=== PATIENT | male | born 1980 | race Caucasian/White ===

== ENCOUNTER 2017-08-27 21:41 | Emergency (ER) | payer BC ==
[2017-08-27] MEDS ORDERED: Sodium Chloride 0.9% 1,000 ML IV ONE ×2 (22:19→22:26)
[2017-08-27] MEDS ORDERED: Aspirin 81 MG Tab.Chew PO ONE (22:19)
[2017-08-27] MEDS ORDERED: Pantoprazole 40 MG Vial IVPUSH ONE (22:19)
[2017-08-27 22:22] LABS: CHLORIDE,CL 108 mmol/L (98-110); SODIUM,NA 141 mmol/L (136-146)
[2017-08-27] MEDS ORDERED: Ondansetron 4 MG/2 ML SDV IVPUSH ONE (22:26)
--- NOTE | 2017-08-28 00:02 | EDM.PDOC ---
ED HPI GENERAL MEDICAL PROBLEM - General Chief Complaint: Chest Pain Stated Complaint: NAUSEA,CHEST PAIN Time Seen by Provider: 08/28/17 00:01 Source of Information: Reports: Patient - History of Present Illness INITIAL COMMENTS - FREE TEXT/NARRATIVE: HISTORY AND PHYSICAL: History of present illness: []Patient presents with abdominal pain 3 out of 10 left lower quadrant which is been present for one week some intermittent nausea no fever chills or sweats at current no chest pain shortness breath headache dizziness palpitation no bowel or urine symptoms Patient had a complaint of chest pain secondary complaint he has had for years and intermittent chest pain that is 0 out of 10 at this time, cardiac enzymes remain negative pain is not present at this time Review of systems: As per history of present illness and below otherwise all systems reviewed and negative. Past medical history: As per history of present illness and as reviewed below otherwise noncontributory. Surgical history: As per history of present illness and as reviewed below otherwise noncontributory. Social history: No reported history of drug or alcohol abuse. Family history: As per history of present illness and as reviewed below otherwise noncontributory. Physical exam: HEENT: Atraumatic, normocephalic, pupils reactive, negative for conjunctival pallor or scleral icterus, mucous membranes moist, throat clear, neck supple, nontender, trachea midline. Lungs: Clear to auscultation, breath sounds equal bilaterally, chest nontender. Heart: S1S2, regular, negative for clicks, rubs, or JVD. Abdomen: Soft, nondistended, tender in the left lower quadrant with deep palpation right lower quadrant nontender no guarding or rebound. Negative for masses or hepatosplenomegaly. Negative for costovertebral tenderness. Pelvis: Stable nontender. Genitourinary: Deferred. Rectal: Deferred. Extremities: Atraumatic, negative for cords or calf pain. Neurovascular unremarkable. Neuro: Awake, alert, oriented. Cranial nerves II through XII unremarkable. Cerebellum unremarkable. Motor and sensory unremarkable throughout. Exam nonfocal. Diagnostics: [Lab as below CT abdomen pelvis with contrast EKG Chest 1 view ] Therapeutics: []1 L normal saline bolus Zofran 8 mg IV Protonix 80 mg IV Cipro 500 mg by mouth bid Impression: [Left lower quadrant tenderness Clinical appearance is more of a diverticulitis CT head no acute abdominal process] Definitive disposition and diagnosis as appropriate pending reevaluation and review of above. Treatments STUDENT SUCCESS COACH: Reports: EKG Left Chest Pain Score (Numeric/FACES): 9 Abdomen Pain Score (Numeric/FACES): 7 - Related Data Allergies Allergy/AdvReac Type Severity Reaction Status Date / Time No Known Allergies Allergy Verified 08/27/17 21:53 Home Meds: Home Meds Albuterol [Proventil HFA] 1 puff INH ASDIRECTED PRN 08/27/17 [History] Past Medical History HEENT History: Reports: Impaired Vision Cardiovascular History: Reports: Angina Respiratory History: Reports: Sleep Apnea Other Respiratory History: on bipap at home - Infectious Disease History Infectious Disease History: Reports: Chicken Pox - Past Surgical History HEENT Surgical History: Reports: None Cardiovascular Surgical History: Reports: None Respiratory Surgical History: Reports: None Social & Family History - Family History Family Medical History: Noncontributory - Tobacco Use Smoking Status *Q: Current Every Day Smoker Years of Tobacco use: 20 Packs/Tins Daily: 0.5 - Caffeine Use Caffeine Use: Reports: Coffee, Energy Drinks, Soda - Recreational Drug Use Recreational Drug Use: No ED ROS GENERAL - Review of Systems Review Of Systems: ROS reveals no pertinent complaints other than HPI. ED EXAM, GENERAL - Physical Exam Exam: See Below Course - Vital Signs Last Recorded V/S: Last Vital Signs Temp 36.5 C 08/27/17 21:48 Pulse 81 08/27/17 21:48 Resp 20 08/27/17 21:48 BP 136/76 08/27/17 21:48 Pulse Ox 96 08/27/17 21:48 - Orders/Labs/Meds Orders: Active Orders 24 hr Category Date Time Status EKG Documentation Completion [RC] STAT Care 08/27/17 21:43 Inactive EKG Documentation Completion [RC] STAT Care 08/27/17 22:19 Active Abdomen Pelvis w Cont [CT] Stat Exams 08/27/17 22:26 Taken Chest 1V Frontal [CR] Stat Exams 08/27/17 22:19 Taken Ciprofloxacin [Ciprofloxacin HCl] Med 08/28/17 00:12 Once 500 mg PO ONETIME ONE Labs: Laboratory Tests 08/27/17 08/27/17 08/27/17 Range/Units 21:50 21:50 23:00 WBC 14.08 H (4.0-11.0) K/uL RBC 5.14 (4.50-5.90) M/uL Hgb 16.2 (13.0-17.0) g/dL Hct 47.2 (38.0-50.0) % MCV 91.8 (80.0-98.0) fL MCH 31.5 (27.0-32.0) pg MCHC 34.3 (31.0-37.0) g/dL RDW Std Deviation 45.9 (28.0-62.0) fl RDW Coeff of Eli 14 (11.0-15.0) % Plt Count 256 (150-400) K/uL MPV 11.20 (7.40-12.00) fL Neut % (Auto) 64.6 (48.0-80.0) % Lymph % (Auto) 23.0 (16.0-40.0) % [place] % (Auto) 8.3 (0.0-15.0) % Eos % (Auto) 3.6 (0.0-7.0) % Baso % (Auto) 0.5 (0.0-1.5) % Neut # (Auto) 9.1 H (1.4-5.7) K/uL Lymph # (Auto) 3.2 H (0.6-2.4) K/uL [place] # (Auto) 1.2 H (0.0-0.8) K/uL Eos # (Auto) 0.5 (0.0-0.7) K/uL Baso # (Auto) 0.1 (0.0-0.1) K/uL Nucleated RBC % 0.0 /100WBC Nucleated RBCs # 0 K/uL Sodium 141 (136-146) mmol/L Potassium 4.1 (3.5-5.1) mmol/L Chloride 108 (98-110) mmol/L Carbon Dioxide 22 (21-31) mmol/L BUN 15 (6.0-23.0) mg/dL Creatinine 1.2 (0.6-1.5) mg/dL Est Cr Clr Drug Dosing 94.31 mL/min Estimated GFR (MDRD) > 60.0 ml/min Glucose 129 H (60-110) mg/dL Calcium 9.7 (8.8-10.8) mg/dL Total Bilirubin 0.3 (0.1-1.5) mg/dL AST 16 (5-40) IU/L ALT 21 (8-54) IU/L Alkaline Phosphatase 86 (40-150) Troponin I < 0.10 (0.0-0.29) NG/ML Total Protein 7.5 (6.0-8.0) g/dL Albumin 4.2 (3.5-5.0) g/dL Globulin 3.3 (2.0-3.5) g/dL Albumin/Globulin Ratio 1.3 (1.3-2.8) Amylase 31 (10-90) U/L Lipase 44 (7-80) U/L Urine Color YELLOW Urine Appearance CLEAR Urine pH 6.0 (5.0-8.0) Ur Specific [place] 1.025 (1.001-1.035) Urine Protein NEGATIVE (NEGATIVE) mg/dL Urine Glucose (UA) NEGATIVE (NEGATIVE) mg/dL Urine Ketones NEGATIVE (NEGATIVE) mg/dL Urine Occult Blood NEGATIVE (NEGATIVE) Urine Nitrite NEGATIVE (NEGATIVE) Urine Bilirubin NEGATIVE (NEGATIVE) Urine Urobilinogen 0.2 (<2.0) EU/dL Ur Leukocyte Esterase NEGATIVE (NEGATIVE) Urine RBC 0-1 (0-2/HPF) Urine WBC 0-1 (0-5/HPF) Ur Epithelial Cells RARE (NONE-FEW) Urine Bacteria RARE (NEGATIVE) Meds: Medications Discontinued Medications Generic Name Dose Route Start Last Admin Trade Name Freq PRN Reason Stop Dose Admin Aspirin 324 mg 08/27/17 22:19 08/27/17 22:29 Aspirin PO 08/27/17 22:20 324 mg ONETIME ONE Administration Sodium Chloride 1,000 mls @ 999 mls/hr 08/27/17 22:19 08/27/17 22:27 Normal Saline IV 08/27/17 23:19 999 mls/hr STAT ONE Administration Sodium Chloride 1,000 mls @ 999 mls/hr 08/27/17 22:26 Normal Saline IV 08/27/17 23:26 STAT ONE Ondansetron HCl 8 mg 08/27/17 22:26 08/27/17 22:39 Zofran IVPUSH 08/27/17 22:27 8 mg ONETIME ONE Administration Pantoprazole Sodium 80 mg 08/27/17 22:19 08/27/17 22:28 Protonix Iv IVPUSH 08/27/17 22:20 80 mg .BOLUS ONE Administration Departure - Departure Time of Disposition: 00:16 Disposition: Home, Self-Care 01 Condition: Good Clinical Impression: Abdominal pain - Discharge Information Referrals: PCP,None [Primary Care Provider] - Forms: ED Department Discharge Additional Instructions: Cipro 500 mg by mouth twice a day #20 no refill Return if symptoms persist or worsen or new concerning symptoms develop Follow-up with primary care in one week [facility] [address] [place] [id number] The following information is given to patients seen in the emergency department who are being discharged to home. This information is to outline your options for follow-up care. We provide all patients seen in our emergency department with a follow-up referral. The need for follow-up, as well as the timing and circumstances, are variable depending upon the specifics of your emergency department visit. If you don't have a primary care physician on staff, we will provide you with a referral. We always advise you to contact your personal physician following an emergency department visit to inform them of the circumstance of the visit and for follow-up with them and/or the need for any referrals to a consulting specialist. The emergency department will also refer you to a specialist when appropriate. This referral assures that you have the opportunity for follow-up care with a specialist. All of these measure are taken in an effort to provide you with optimal care, which includes your follow-up. Under all circumstances we always encourage you to contact your private physician who remains a resource for coordinating your care. When calling for follow-up care, please make the office aware that this follow-up is from your recent emergency room visit. If for any reason you are refused follow-up, please contact the [facility] emergency department at and asked to speak to the emergency department charge nurse. - My Orders Last 24 Hours: My Active Orders 08/27/17 21:43 EKG Documentation Completion [RC] STAT 08/27/17 22:19 EKG Documentation Completion [RC] STAT Chest 1V Frontal [CR] Stat 08/27/17 22:26 Abdomen Pelvis w Cont [CT] Stat 08/28/17 00:12 Ciprofloxacin [Ciprofloxacin HCl] 500 mg PO ONETIME ONE - Assessment/Plan Last 24 Hours: My Active Orders 08/27/17 21:43 EKG Documentation Completion [RC] STAT 08/27/17 22:19 EKG Documentation Completion [RC] STAT Chest 1V Frontal [CR] Stat 08/27/17 22:26 Abdomen Pelvis w Cont [CT] Stat 08/28/17 00:12 Ciprofloxacin [Ciprofloxacin HCl] 500 mg PO ONETIME ONE
[2017-08-28] MEDS ORDERED: Ciprofloxacin 500 MG Tab PO ONE (00:12)
[2017-08-28 00:39] VITALS: BP 123/75
--- NOTE | 2017-08-29 18:59 | CR ---
EXAM DATE: 08/27/17 PATIENT'S AGE: 37 Patient: ARNEL HAIDER Facility: [place], [place] Site . Site : 1980 Study: XRay Chest [id number] 11:45:00 PM Ordering Physician: Raymond Godoy Final Report: INDICATION: Chest pain, shortness of breath TECHNIQUE: Chest 1 view. COMPARISON: 11/30/11 FINDINGS: Cardiovascular and mediastinum: Heart size and vasculature are normal in caliber and appearance. Mediastinum is within normal limits. Lungs and pleural space: Lungs are clear. No sign of infiltrate or mass. No sign of pleural effusion. No pneumothorax. Bones and soft tissues: No significant findings. IMPRESSION: Unremarkable chest. Dictated by: Jose Perez MD @ 08/27/2017 23:54:29 (Electronic Signature) Report Signed by Proxy. [facility]Bon
--- NOTE | 2017-08-29 19:00 | CT ---
EXAM DATE: 08/27/17 PATIENT'S AGE: 37 Patient: ARNEL HAIDER Facility: [place], [place] Site . Site : 1980 Study: CT Abdomen/Pelvis [id number] 11:47:14 PM Ordering Physician: Raymond Godoy Final Report: INDICATION: Midabdominal pain and nausea for 1 week TECHNIQUE: CT abdomen and pelvis acquired with 100 cc Isovue 370 IV contrast. COMPARISON: June 04, 2016 FINDINGS: Lower chest: There is a 1.0 cm pulmonary nodule in the right lower lobe, unchanged. Liver: Unremarkable. Spleen: Unremarkable. Pancreas: Unremarkable. Gallbladder and bile ducts: Unremarkable. Adrenal glands: Unremarkable. Kidneys: There is a horseshoe kidney. GI tract: Unremarkable. Appendix is normal. Vascular structures: Unremarkable. Lymph nodes: Unremarkable. Miscellaneous: Small fat containing left inguinal hernia. No free air or significant free fluid. Pelvic Organs: Unremarkable. Bones: Unremarkable for age. IMPRESSION: 1. No acute intra-abdominal process identified. 2. Stable 1.0 cm pulmonary nodule in the right lower lobe. Consider PET-CT to evaluate for metabolic activity. 3. Horseshoe kidney. 4. Small fat containing left inguinal hernia. Please note that all CT scans at this facility use dose modulation, iterative reconstruction, and/or weight-based dosing when appropriate to reduce radiation dose to as low as reasonably achievable. Dictated by Beverley Crespo MD @ Aug 27 2017 11:58PM (Electronic Signature) Report Signed by Proxy. CHANDAN
== END 2017-08-28 00:30 | disposition home or self-care (01) ==
LOC: MW.ED 21:41
DX: R10.32 Left lower quadrant pain (principal); F17.210 Nicotine dependence, cigarettes, uncomplicated
CPT/HCPCS: 36415; 71010; 74177; 80053; 81001; 82150; 83690; 84484; 85025; 93005; 96361; 96374; 96375; 99285; A9270; C9113; J2405; J7040; 99283

== ENCOUNTER 2018-11-23 13:17 | Emergency (ER) | payer BC ==
--- NOTE | 2018-11-23 13:57 | EDM.PDOC ---
ED HPI GENERAL MEDICAL PROBLEM - General Chief Complaint: Respiratory Problem Stated Complaint: COUGH CHEST PAIN Time Seen by Provider: 11/23/18 13:19 Source of Information: Reports: Patient History Limitations: Reports: No Limitations - History of Present Illness INITIAL COMMENTS - FREE TEXT/NARRATIVE: History of present illness: []Patient has had raspy breathing since October 12 when he was seen here in the ER. He states he uses albuterol nebulizer and inhaler and noted this morning that he woke up burning up sweating. He complains of a sore throat, body aches and sinus congestion. He has not measured a fever at home. Patient denies any vomiting or diarrhea. Patient sleeps with a BiPAP and wakes up short of breath every morning. Not been able to follow up with primary care or vice president lending. Of note, patient continues to smoke. Review of systems: As per history of present illness and below otherwise all systems reviewed and negative. Past medical history: As per history of present illness and as reviewed below otherwise noncontributory. Surgical history: As per history of present illness and as reviewed below otherwise noncontributory. Social history: No reported history of drug or alcohol abuse. Family history: As per history of present illness and as reviewed below otherwise noncontributory. Physical exam: General: Well developed, well nourished in NAD HEENT: Atraumatic, normocephalic, pupils reactive, negative for conjunctival pallor or scleral icterus, mucous membranes moist, throat clear, neck supple, nontender, trachea midline. Lungs: Diffuse rhonchi no respiratory distress or pessary muscle use, breath sounds equal bilaterally, chest nontender. Heart: S1S2, regular, negative for clicks, rubs, or JVD. Abdomen: NABS, Soft, nondistended, nontender. Negative for masses or hepatosplenomegaly. Negative for costovertebral tenderness. Pelvis: Stable nontender. Genitourinary: Deferred. Rectal: Deferred. Extremities: Atraumatic, negative for cords or calf pain. Neurovascular unremarkable. Neuro: Awake, alert, oriented. Cranial nerves II through XII unremarkable. Cerebellum unremarkable. Motor and sensory unremarkable throughout. Exam nonfocal. Skin:warm and dry Diagnostics: Influenza A +, strep vital signs stable no hypoxia Therapeutics: DuoNeb ED Course: Unremarkable Impression: Influenza A Prescriptions: Prednisone albuterol Plan: Follow-up with primary care Definitive disposition and diagnosis as appropriate pending reevaluation and review of above. Throat Pain Score (Numeric/FACES): 5 - Related Data Allergies Allergy/AdvReac Type Severity Reaction Status Date / Time No Known Allergies Allergy Verified 11/23/18 13:49 Home Meds: Home Meds Albuterol [Proventil HFA] 1 puff INH ASDIRECTED PRN 08/27/17 [History] Albuterol [Ventolin HFA] 2 puff INH Q4HR PRN #1 inhaler 11/23/18 [Rx] predniSONE [Prednisone] 20 mg PO DAILY #5 tablet 11/23/18 [Rx] Past Medical History HEENT History: Reports: Impaired Vision Cardiovascular History: Reports: Angina Respiratory History: Reports: Asthma, Sleep Apnea Other Respiratory History: on bipap at home Gastrointestinal History: Reports: GERD - Infectious Disease History Infectious Disease History: Reports: Chicken Pox - Past Surgical History HEENT Surgical History: Reports: None Cardiovascular Surgical History: Reports: None Respiratory Surgical History: Reports: None Social & Family History - Family History Family Medical History: Noncontributory - Tobacco Use Smoking Status *Q: Current Every Day Smoker Years of Tobacco use: 20 Packs/Tins Daily: 2 - Caffeine Use Caffeine Use: Reports: Soda - Recreational Drug Use Recreational Drug Use: No ED ROS GENERAL - Review of Systems Review Of Systems: ROS reveals no pertinent complaints other than HPI. ED EXAM, GENERAL - Physical Exam Exam: See Below (See history of present illness) Course - Vital Signs Last Recorded V/S: Last Vital Signs Temp 98.4 F 11/23/18 13:47 Pulse 90 11/23/18 13:47 Resp 18 11/23/18 13:47 BP 107/72 11/23/18 13:47 Pulse Ox 95 11/23/18 14:06 - Orders/Labs/Meds Orders: Active Orders 24 hr Category Date Time Status RT Aerosol Therapy [RC] ASDIRECTED Care 11/23/18 13:58 Active CULTURE STREP A CONFIRMATION [] Stat Lab 11/23/18 14:10 Results STREP SCRN A RAPID W CULT CONF [] Stat Lab 11/23/18 14:10 Results Meds: Medications Discontinued Medications Generic Name Dose Route Start Last Admin Trade Name Freq PRN Reason Stop Dose Admin Albuterol/Ipratropium 3 ml 11/23/18 13:58 11/23/18 14:06 Duoneb 3.0-0.5 Mg/3 Ml NEB 11/23/18 13:59 3 ml ONETIME ONE Administration Departure - Departure Time of Disposition: 14:56 Disposition: Home, Self-Care 01 Condition: Good Clinical Impression: Influenza A Clinical Impression: (Ruled Out): Chronic bronchitis, Viral URI - Discharge Information *PRESCRIPTION DRUG MONITORING PROGRAM REVIEWED*: No *COPY OF PRESCRIPTION DRUG MONITORING REPORT IN PATIENT ROBERT: No Prescriptions: Albuterol [Ventolin HFA] 2 puff INH Q4HR PRN #1 inhaler PRN Reason: Shortness Of Breath predniSONE [Prednisone] 20 mg PO DAILY #5 tablet Referrals: PCP,Unknown [Primary Care Provider] - Forms: ED Department Discharge Additional Instructions: The following information is given to patients seen in the emergency department who are being discharged to home. This information is to outline your options for follow-up care. We provide all patients seen in our emergency department with a follow-up referral. The need for follow-up, as well as the timing and circumstances, are variable depending upon the specifics of your emergency department visit. If you don't have a primary care physician on staff, we will provide you with a referral. We always advise you to contact your personal physician following an emergency department visit to inform them of the circumstance of the visit and for follow-up with them and/or the need for any referrals to a consulting specialist. The emergency department will also refer you to a specialist when appropriate. This referral assures that you have the opportunity for follow-up care with a specialist. All of these measure are taken in an effort to provide you with optimal care, which includes your follow-up. Under all circumstances we always encourage you to contact your private physician who remains a resource for coordinating your care. When calling for follow-up care, please make the office aware that this follow-up is from your recent emergency room visit. If for any reason you are refused follow-up, please contact the [facility] Emergency Department at and asked to speak to the emergency department charge nurse. Take meds as directed follow-up with primary care return if symptoms worsen or change. [facility] [address] [place] [id number] - My Orders Last 24 Hours: My Active Orders 11/23/18 13:58 RT Aerosol Therapy [RC] ASDIRECTED 11/23/18 14:10 CULTURE STREP A CONFIRMATION [RM] Stat STREP SCRN A RAPID W CULT CONF [RM] Stat - Assessment/Plan Last 24 Hours: My Active Orders 11/23/18 13:58 RT Aerosol Therapy [RC] ASDIRECTED 11/23/18 14:10 CULTURE STREP A CONFIRMATION [RM] Stat STREP SCRN A RAPID W CULT CONF [RM] Stat
[2018-11-23] MEDS ORDERED: Albuterol/Ipratropium 3.0-0.5 MG/3 ML Neb Soln NEB ONE (13:58)
[2018-11-23] MEDS ORDERED: Albuterol/Ipratropium 3.0-0.5 MG/3 ML Neb Soln ONE (14:03)
[2018-11-23 15:08] VITALS: BP 136/60
== END 2018-11-23 15:04 | disposition home or self-care (01) ==
LOC: MW.ED 13:17
DX: J10.1 Influenza due to other identified influenza virus with other respiratory manifestations (principal); F17.219 Nicotine dependence, cigarettes, with unspecified nicotine-induced disorders; Z79.899 Other long term (current) drug therapy
CPT/HCPCS: 87081; 87804; 87880-QW; 94640; 99285-25; J7620-GY

== ENCOUNTER 2019-02-08 13:40 | Emergency (ER) | payer SELFPAY ==
[2019-02-08] MEDS ORDERED: Benzocaine 20% Topical Spray UD MUCMEM ONE (13:47)
[2019-02-08] MEDS ORDERED: Lidocaine 2% Viscous Solution 15 ML Cup PO ONE (13:47)
--- NOTE | 2019-02-08 13:48 | EDM.PDOC ---
ED HPI GENERAL MEDICAL PROBLEM - General Chief Complaint: General Stated Complaint: TOOTH PAIN Time Seen by Provider: 02/08/19 13:44 Source of Information: Reports: Patient History Limitations: Reports: No Limitations - History of Present Illness INITIAL COMMENTS - FREE TEXT/NARRATIVE: History of present illness: []Patient started having pain in his upper and lower right molars last night. Facial swelling, fevers, drainage from his gums or difficulty swallowing. Review of systems: As per history of present illness and below otherwise all systems reviewed and negative. Past medical history: As per history of present illness and as reviewed below otherwise noncontributory. Surgical history: As per history of present illness and as reviewed below otherwise noncontributory. Social history: No reported history of drug or alcohol abuse. Family history: As per history of present illness and as reviewed below otherwise noncontributory. Physical exam: General: Well developed, well nourished in NAD HEENT: Atraumatic, normocephalic, pupils reactive, negative for conjunctival pallor or scleral icterus, mucous membranes moist, throat clear, neck supple, nontender, trachea midline. Lungs: Clear to auscultation, breath sounds equal bilaterally, chest nontender. Heart: S1S2, regular, negative for clicks, rubs, or JVD. Abdomen: NABS, Soft, nondistended, nontender. Negative for masses or hepatosplenomegaly. Negative for costovertebral tenderness. Pelvis: Stable nontender. Genitourinary: Deferred. Rectal: Deferred. Extremities: Atraumatic, negative for cords or calf pain. Neurovascular unremarkable. Neuro: Awake, alert, oriented. Cranial nerves II through XII unremarkable. Cerebellum unremarkable. Motor and sensory unremarkable throughout. Exam nonfocal. Skin:warm and dry Diagnostics: None Therapeutics: None ED Course: Stable Impression: Dental pain Prescriptions: Clindamycin and dental balls given while in the ED Plan: Take meds as directed, follow up with your primary care physician, return to ER if symptoms worsen or change. Definitive disposition and diagnosis as appropriate pending reevaluation and review of above. Right Tooth/Teeth Pain Score (Numeric/FACES): 10 - Related Data Allergies Allergy/AdvReac Type Severity Reaction Status Date / Time No Known Allergies Allergy Verified 02/08/19 13:53 Home Meds: Home Meds Albuterol [Ventolin HFA] 2 puff INH Q4HR PRN #1 inhaler 11/23/18 [Rx] Clindamycin HCl 300 mg PO TID #30 capsule 02/08/19 [Rx] Ranitidine HCl [Heartburn Relief 150] 150 mg PO DAILY 02/08/19 [History] Past Medical History HEENT History: Reports: Impaired Vision Cardiovascular History: Reports: Angina Respiratory History: Reports: Asthma, Sleep Apnea Other Respiratory History: on bipap at home Gastrointestinal History: Reports: GERD - Infectious Disease History Infectious Disease History: Reports: Chicken Pox - Past Surgical History HEENT Surgical History: Reports: None Cardiovascular Surgical History: Reports: None Respiratory Surgical History: Reports: None Social & Family History - Family History Family Medical History: Noncontributory - Caffeine Use Caffeine Use: Reports: Soda ED ROS GENERAL - Review of Systems Review Of Systems: ROS reveals no pertinent complaints other than HPI. ED EXAM, GENERAL - Physical Exam Exam: See Below (See history of present illness) Course - Vital Signs Last Recorded V/S: Last Vital Signs Temp 97.3 F 02/08/19 13:51 Pulse 86 02/08/19 13:51 Resp 18 02/08/19 13:51 BP 170/95 H 02/08/19 13:51 Pulse Ox 95 02/08/19 13:51 - Orders/Labs/Meds Meds: Medications Discontinued Medications Generic Name Dose Route Start Last Admin Trade Name Freq PRN Reason Stop Dose Admin Benzocaine 2 each 02/08/19 13:47 Hurricaine One 20% MUCMEM 02/08/19 13:48 ONETIME ONE Lidocaine HCl 15 ml 02/08/19 13:47 Xylocaine 2% Viscous PO 02/08/19 13:48 ONETIME ONE Departure - Departure Time of Disposition: 13:59 Disposition: Home, Self-Care 01 Condition: Good Clinical Impression: Pain, dental - Discharge Information *PRESCRIPTION DRUG MONITORING PROGRAM REVIEWED*: No *COPY OF PRESCRIPTION DRUG MONITORING REPORT IN PATIENT ROBERT: No Prescriptions: Clindamycin HCl 300 mg PO TID #30 capsule Referrals: PCP,Unknown [Primary Care Provider] - Forms: ED Department Discharge Additional Instructions: The following information is given to patients seen in the emergency department who are being discharged to home. This information is to outline your options for follow-up care. We provide all patients seen in our emergency department with a follow-up referral. The need for follow-up, as well as the timing and circumstances, are variable depending upon the specifics of your emergency department visit. If you don't have a primary care physician on staff, we will provide you with a referral. We always advise you to contact your personal physician following an emergency department visit to inform them of the circumstance of the visit and for follow-up with them and/or the need for any referrals to a consulting specialist. The emergency department will also refer you to a specialist when appropriate. This referral assures that you have the opportunity for follow-up care with a specialist. All of these measure are taken in an effort to provide you with optimal care, which includes your follow-up. Under all circumstances we always encourage you to contact your private physician who remains a resource for coordinating your care. When calling for follow-up care, please make the office aware that this follow-up is from your recent emergency room visit. If for any reason you are refused follow-up, please contact the [facility] Emergency Department at and asked to speak to the emergency department charge nurse. Take meds as directed, follow up with your primary care physician, return to ER if symptoms worsen or change. [facility] [address] [place] [id number]
[2019-02-08 14:19] VITALS: BP 149/92
== END 2019-02-08 14:19 | disposition home or self-care (01) ==
LOC: MW.ED 13:40
DX: K08.89 Other specified disorders of teeth and supporting structures (principal)
CPT/HCPCS: 99282; A9270

== ENCOUNTER 2020-09-15 12:25 | Emergency (ER) | payer BC ==
[2020-09-15] MEDS ORDERED: Ondansetron 4 MG/2 ML SDV IVPUSH ONE (13:26)
[2020-09-15] MEDS ORDERED: Ketorolac 30 MG/ML SDV IVPUSH ONE (13:26)
[2020-09-15] MEDS ORDERED: Sodium Chloride 0.9% 1,000 ML IV ONE (13:26)
[2020-09-15] MEDS ORDERED: Morphine 4 MG/ML Syringe IVPUSH ONE (13:27)
[2020-09-15 13:44] LABS: BLOOD UREA NITROGEN,BUN 15 mg/dL (7.0-18.0); CARBON DIOXIDE,CO2 23.6 mmol/L (21.0-32.0); CHLORIDE,CL 105 mmol/L (98-107); GLUCOSE RANDOM 123 mg/dL (74-106); LIPASE 103 U/L (73-393); POTASSIUM,K 3.7 mmol/L (3.5-5.1); SODIUM,NA 141 mmol/L (136-148)
[2020-09-15] MEDS ORDERED: Iopamidol 755 MG/ML 500 ML Multipack Bottle IVPUSH ONE (14:41)
--- NOTE | 2020-09-15 14:43 | EDM.PDOC ---
ED HPI GENERAL MEDICAL PROBLEM - General Chief Complaint: Abdominal Pain Stated Complaint: ABDOMINAL PAIN Time Seen by Provider: 09/15/20 12:27 Source of Information: Reports: Patient History Limitations: Reports: No Limitations - History of Present Illness INITIAL COMMENTS - FREE TEXT/NARRATIVE: HISTORY AND PHYSICAL: History of present illness: Patient is a 40-year-old male who presents to the ED today with concern of sudden onset lower abdominal pain that began when he was sitting at home. Patient states prior to the onset of his symptoms, he was going about his day without any concerns. Patient states he was sitting and watching TV when he began to have sudden lower abdominal pain from his umbilicus down both his right and lower abdomen. Patient states this began 45 minutes prior to arrival to the ED and he feels nauseous but has not vomited. Patient states he is also been sweating since the onset of his symptoms due to the pain. Patient states he has a history of prior hernia repair using mesh but states he is not sure where this is located. Patient denies any other abdominal surgeries. Patient denies any other health history. Patient denies fever, chills, chest pain, shortness of breath, or cough. Denies headache, neck stiff ness, change in vision, syncope, or near syncope. Denies nausea, diarrhea, constipation, or dysuria. Has not noted any blood in urine or stool. Patient has been eating and drinking appropriately prior to onset of symptoms. Review of systems: As per history of present illness and below otherwise all systems reviewed and negative. Past medical history: As per history of present illness and as reviewed below otherwise noncontributory. Surgical history: As per history of present illness and as reviewed below otherwise noncontributory. Social history: See social history for further information Family history: As per history of present illness and as reviewed below otherwise noncontributory. Physical exam: General: Patient is alert, oriented. Patient laying on exam table, moderately uncomfortable from pain, holding lower abdomen and diaphoretic. HEENT: Atraumatic, normocephalic, pupils equal and reactive bilaterally, negative for conjunctival pallor or scleral icterus, mucous membranes moist, TMs normal bilaterally, throat clear, neck supple, nontender, trachea midline. No drooling or trismus noted. No meningeal signs. No hot potato voice noted. Lungs: Clear to auscultation, breath sounds equal bilaterally, chest nontender. Heart: S1S2, regular rate and rhythm without overt murmur Abdomen: Obese, Soft, nondistended, generalized moderate tenderness of the lower abdomen without guarding. Negative for masses or hepatosplenomegaly. Negative for costovertebral tenderness. Pelvis: Stable nontender. Genitourinary: Deferred. Rectal: Deferred. Skin: Intact, warm, dry. No lesions or rashes noted. Extremities: Atraumatic, negative for cords or calf pain. Neurovascular unremarkable. Neuro: Awake, alert, oriented. Cranial nerves II through XII unremarkable. Cerebellum unremarkable. Motor and sensory unremarkable throughout. Exam nonfocal. Notes: Dr. Viveros verbally involved in patient care, including antibiotic recommendations decision making. Patients symptoms have much improved with therapeutics today and is comfortable on exam and in no acute distress, and able to tolerate PO intake. Patient does have an elevated WBC count, however, his urine does not appear to be infected, and lactate is within normal limits. Will give antibiotics empirically and close follow up with urology. Discussed importance for follow-up with the urologist, Dr. Quiros and his PCP. Signs and symptoms that would prompt return to the ED thoroughly discussed with patient. Voices understanding and is agreeable to plan of care. Denies any further questions or concerns at this time. Diagnostics: EKG, CBC, CMP, UA, urine culture, Trop, CXR, Abd/pelvic w/w/o cont, lipase, lactate, blood cultures x 2 Therapeutics: NS, Zofran, Toradol, Morphine, Rocephin Prescription: Bactrim DS, Zofran, Mathews 5/325 (#12), Flomax Impression: Ureterolithiasis, left Plan: 1. Take medication as prescribed. You can also use ibuprofen and Tylenol as directed for pain and discomfort. 2. Follow-up with the urologist, Dr. Stringer, as discussed. Also follow-up with your primary care provider as discussed. 3. Return to the ED as needed and as discussed. Definitive disposition and diagnosis as appropriate pending reevaluation and review of above. Abdomen Pain Score (Numeric/FACES): 10 - Related Data Allergies Allergy/AdvReac Type Severity Reaction Status Date / Time No Known Allergies Allergy Verified 09/15/20 13:13 Home Meds: Home Meds Albuterol [Ventolin HFA] 2 puff INH Q4HR PRN #1 inhaler 11/23/18 [Rx] Ranitidine HCl [Heartburn Relief 150] 150 mg PO DAILY 02/08/19 [History] Budesonide/Formoterol Fumarate [Symbicort 160-4.5 Mcg Inhaler] 09/15/20 [History] Hydrocodone/Acetaminophen [Hydrocodone-Acetamin 5-325 mg] 1 each PO Q6HR PRN #12 tablet 09/15/20 [Rx] Ondansetron [Zofran ODT] 4 mg PO Q6H PRN #8 tab.dis 09/15/20 [Rx] Sulfamethoxazole/Trimethoprim [Bactrim Ds Tablet] 1 each PO BID #20 tablet 09/15/20 [Rx] Tamsulosin HCl [Flomax] 0.4 mg PO DAILY #5 cap.er.24h 09/15/20 [Rx] Past Medical History HEENT History: Reports: Impaired Vision Cardiovascular History: Reports: Angina Respiratory History: Reports: Asthma, Sleep Apnea Other Respiratory History: on bipap at home Gastrointestinal History: Reports: GERD Neurological History: Reports: None Psychiatric History: Reports: None Endocrine/Metabolic History: Reports: None - Infectious Disease History Infectious Disease History: Reports: Chicken Pox - Past Surgical History HEENT Surgical History: Reports: None Cardiovascular Surgical History: Reports: None Respiratory Surgical History: Reports: None GI Surgical History: Reports: Hernia Repair/Other Other GI Surgeries/Procedures: Hernia repair 08/23/20, four repairs Musculoskeletal Surgical History: Reports: Other (See Below) Social & Family History - Family History Family Medical History: Noncontributory - Tobacco Use Tobacco Use Status *Q: Current Every Day Tobacco User Years of Tobacco use: 9 Packs/Tins Daily: 1 - Caffeine Use Caffeine Use: Reports: Coffee, Energy Drinks - Recreational Drug Use Recreational Drug Use: No ED ROS GENERAL - Review of Systems Review Of Systems: Comprehensive ROS is negative, except as noted in HPI. ED EXAM, GENERAL - Physical Exam Exam: See Below (see dictation) Course - Vital Signs Last Recorded V/S: Last Vital Signs Temp 97.1 F 09/15/20 16:39 Pulse 83 09/15/20 16:39 Resp 20 09/15/20 16:39 BP 100/51 L 09/15/20 16:39 Pulse Ox 95 09/15/20 16:39 - Orders/Labs/Meds Orders: Active Orders 24 hr Category Date Time Status CULTURE BLOOD [BC] Stat Lab 09/15/20 14:40 Received CULTURE BLOOD [BC] Stat Lab 09/15/20 14:56 Results CULTURE URINE [RM] Stat Lab 09/15/20 15:00 Received Blood Culture x2 Reflex Set [OM.PC] Stat Oth 09/15/20 14:21 Ordered Labs: Laboratory Tests 09/15/20 09/15/20 09/15/20 Range/Units 12:53 12:53 14:40 WBC 21.27 H (4.0-11.0) K/uL RBC 5.21 (4.50-5.90) M/uL Hgb 16.1 (13.0-17.0) g/dL Hct 48.5 (38.0-50.0) % MCV 93.1 (80.0-98.0) fL MCH 30.9 (27.0-32.0) pg MCHC 33.2 (31.0-37.0) g/dL RDW Std Deviation 46.1 (28.0-62.0) fl RDW Coeff of Eli 13 (11.0-15.0) % Plt Count 356 (150-400) K/uL MPV 11.30 (7.40-12.00) fL Neut % (Auto) 59.8 (48.0-80.0) % Lymph % (Auto) 29.1 (16.0-40.0) % Bell % (Auto) 8.6 (0.0-15.0) % Eos % (Auto) 2.0 (0.0-7.0) % Baso % (Auto) 0.5 (0.0-1.5) % Neut # (Auto) 12.7 H (1.4-5.7) K/uL Lymph # (Auto) 6.2 H (0.6-2.4) K/uL Bell # (Auto) 1.8 H (0.0-0.8) K/uL Eos # (Auto) 0.4 (0.0-0.7) K/uL Baso # (Auto) 0.1 (0.0-0.1) K/uL Nucleated RBC % 0.0 /100WBC Nucleated RBCs # 0 K/uL Lactate 1.5 (0.20-2.00) mmol/L Sodium 141 (136-148) mmol/L Potassium 3.7 (3.5-5.1) mmol/L Chloride 105 (98-107) mmol/L Carbon Dioxide 23.6 (21.0-32.0) mmol/L BUN 15 (7.0-18.0) mg/dL Creatinine 1.4 H (0.8-1.3) mg/dL Est Cr Clr Drug Dosing 78.52 mL/min Estimated GFR (MDRD) 56.7 ml/min Glucose 123 H (74-106) mg/dL Calcium 9.3 (8.5-10.1) mg/dL Total Bilirubin 0.3 (0.2-1.0) mg/dL AST 18 (15-37) IU/L ALT 33 (14-63) IU/L Alkaline Phosphatase 91 (46-116) U/L Troponin I < 0.050 (0.000-0.056) ng/mL Total Protein 7.6 (6.4-8.2) g/dL Albumin 4.0 (3.4-5.0) g/dL Globulin 3.6 (2.6-4.0) g/dL Albumin/Globulin Ratio 1.1 (0.9-1.6) Lipase 103 (73-393) U/L Urine Color Urine Appearance Urine pH (5.0-8.0) Ur Specific [place] (1.001-1.035) Urine Protein (NEGATIVE) mg/dL Urine Glucose (UA) (NEGATIVE) mg/dL Urine Ketones (NEGATIVE) mg/dL Urine Occult Blood (NEGATIVE) Urine Nitrite (NEGATIVE) Urine Bilirubin (NEGATIVE) Urine Urobilinogen (<2.0) EU/dL Ur Leukocyte Esterase (NEGATIVE) Urine RBC (0-2/HPF) Urine WBC (0-5/HPF) Ur Epithelial Cells (NONE-FEW) Urine Bacteria (NEGATIVE) 09/15/20 Range/Units 15:00 WBC (4.0-11.0) K/uL RBC (4.50-5.90) M/uL Hgb (13.0-17.0) g/dL Hct (38.0-50.0) % MCV (80.0-98.0) fL MCH (27.0-32.0) pg MCHC (31.0-37.0) g/dL RDW Std Deviation (28.0-62.0) fl RDW Coeff of Eli (11.0-15.0) % Plt Count (150-400) K/uL MPV (7.40-12.00) fL Neut % (Auto) (48.0-80.0) % Lymph % (Auto) (16.0-40.0) % Bell % (Auto) (0.0-15.0) % Eos % (Auto) (0.0-7.0) % Baso % (Auto) (0.0-1.5) % Neut # (Auto) (1.4-5.7) K/uL Lymph # (Auto) (0.6-2.4) K/uL Bell # (Auto) (0.0-0.8) K/uL Eos # (Auto) (0.0-0.7) K/uL Baso # (Auto) (0.0-0.1) K/uL Nucleated RBC % /100WBC Nucleated RBCs # K/uL Lactate (0.20-2.00) mmol/L Sodium (136-148) mmol/L Potassium (3.5-5.1) mmol/L Chloride (98-107) mmol/L Carbon Dioxide (21.0-32.0) mmol/L BUN (7.0-18.0) mg/dL Creatinine (0.8-1.3) mg/dL Est Cr Clr Drug Dosing mL/min Estimated GFR (MDRD) ml/min Glucose (74-106) mg/dL Calcium (8.5-10.1) mg/dL Total Bilirubin (0.2-1.0) mg/dL AST (15-37) IU/L ALT (14-63) IU/L Alkaline Phosphatase (46-116) U/L Troponin I (0.000-0.056) ng/mL Total Protein (6.4-8.2) g/dL Albumin (3.4-5.0) g/dL Globulin (2.6-4.0) g/dL Albumin/Globulin Ratio (0.9-1.6) Lipase (73-393) U/L Urine Color YELLOW Urine Appearance CLEAR Urine pH 5.5 (5.0-8.0) Ur Specific [place] <= 1.005 (1.001-1.035) Urine Protein NEGATIVE (NEGATIVE) mg/dL Urine Glucose (UA) NEGATIVE (NEGATIVE) mg/dL Urine Ketones NEGATIVE (NEGATIVE) mg/dL Urine Occult Blood MODERATE H (NEGATIVE) Urine Nitrite NEGATIVE (NEGATIVE) Urine Bilirubin NEGATIVE (NEGATIVE) Urine Urobilinogen 0.2 (<2.0) EU/dL Ur Leukocyte Esterase NEGATIVE (NEGATIVE) Urine RBC 1-3 (0-2/HPF) Urine WBC 0-2 (0-5/HPF) Ur Epithelial Cells FEW (NONE-FEW) Urine Bacteria RARE (NEGATIVE) Meds: Medications Discontinued Medications Generic Name Dose Route Start Last Admin Trade Name Freq PRN Reason Stop Dose Admin Sodium Chloride 1,000 mls @ 999 mls/hr 09/15/20 13:26 09/15/20 13:32 Normal Saline IV 09/15/20 14:26 999 mls/hr BOLUS ONE Administration Ceftriaxone Sodium/Dextrose 1 50 mls @ 100 mls/hr 09/15/20 15:36 09/15/20 16:00 gm/ Premix IV 09/15/20 16:05 100 mls/hr ONETIME ONE Administration Iopamidol 100 ml 09/15/20 14:41 09/15/20 14:41 Isovue Multipack-370 (76%) IVPUSH 09/15/20 14:42 100 ml ONETIME ONE Administration Ketorolac Tromethamine 30 mg 09/15/20 13:26 09/15/20 13:32 Toradol IVPUSH 09/15/20 13:27 30 mg ONETIME ONE Administration Morphine Sulfate 4 mg 09/15/20 13:27 09/15/20 13:32 Morphine IVPUSH 09/15/20 13:28 4 mg ONETIME ONE Administration Ondansetron HCl 4 mg 09/15/20 13:26 09/15/20 13:32 Zofran IVPUSH 09/15/20 13:27 4 mg ONETIME ONE Administration Departure - Departure Time of Disposition: 15:52 Disposition: Home, Self-Care 01 Clinical Impression: Ureterolithiasis - Discharge Information Prescriptions: Sulfamethoxazole/Trimethoprim [Bactrim Ds Tablet] 1 each PO BID #20 tablet Tamsulosin HCl [Flomax] 0.4 mg PO DAILY #5 cap.er.24h Hydrocodone/Acetaminophen [Hydrocodone-Acetamin 5-325 mg] 1 each PO Q6HR PRN #12 tablet PRN Reason: Pain (Severe 7-10) Ondansetron [Zofran ODT] 4 mg PO Q6H PRN #8 tab.dis PRN Reason: Nausea/Vomiting Instructions: Kidney Stones, [id number] Referrals: PCP,None [Primary Care Provider] - Forms: ED Department Discharge Additional Instructions: The following information is given to patients seen in the emergency department who are being discharged to home. This information is to outline your options for follow-up care. We provide all patients seen in our emergency department with a follow-up referral. The need for follow-up, as well as the timing and circumstances, are variable depending upon the specifics of your emergency department visit. If you don't have a primary care physician on staff, we will provide you with a referral. We always advise you to contact your personal physician following an emergency department visit to inform them of the circumstance of the visit and for follow-up with them and/or the need for any referrals to a consulting specialist. The emergency department will also refer you to a specialist when appropriate. This referral assures that you have the opportunity for follow-up care with a specialist. All of these measure are taken in an effort to provide you with optimal care, which includes your follow-up. Under all circumstances we always encourage you to contact your private physician who remains a resource for coordinating your care. When calling for follow-up care, please make the office aware that this follow-up is from your recent emergency room visit. If for any reason you are refused follow-up, please contact the [facility] Emergency Department at and asked to speak to the emergency department charge nurse. [facility] [address] [place] [id number] [facility] [address] [place] [address] [facility] - Urology, Dr. Quiros [address] [place] [address] 1. Take medication as prescribed. You can also use ibuprofen and Tylenol as directed for pain and discomfort. 2. Follow-up with the urologist, Dr. Stringer, as discussed. Also follow-up with your primary care provider as discussed. 3. Return to the ED as needed and as discussed. Sepsis Event Note (ED) - Evaluation Sepsis Screening Result: No Definite Risk - Focused Exam Vital Signs: Vital Signs Temp Pulse Resp BP Pulse Ox 09/15/20 16:39 97.1 F 83 20 100/51 L 95 09/15/20 16:03 72 18 126/73 97 09/15/20 14:27 89 20 103/50 L 98 09/15/20 13:14 96.4 F L 63 20 165/87 H 97 - My Orders Last 24 Hours: My Active Orders 09/15/20 14:21 Blood Culture x2 Reflex Set [OM.PC] Stat 09/15/20 14:40 CULTURE BLOOD [BC] Stat 09/15/20 14:56 CULTURE BLOOD [BC] Stat 09/15/20 15:00 CULTURE URINE [RM] Stat - Assessment/Plan Last 24 Hours: My Active Orders 09/15/20 14:21 Blood Culture x2 Reflex Set [OM.PC] Stat 09/15/20 14:40 CULTURE BLOOD [BC] Stat 09/15/20 14:56 CULTURE BLOOD [BC] Stat 09/15/20 15:00 CULTURE URINE [RM] Stat
--- NOTE | 2020-09-15 14:47 | PCM.PRNOTE ---
- Free Text/Narrative Note: Time: 135 Rate: 82 Rhythm: sinus Intervals: normal ST-T wave: no acute changes Overall: normal sinus rhythm
--- NOTE | 2020-09-15 14:50 | CR ---
HISTORY: Diaphoresis. TECHNIQUE: One view of the chest. COMPARISON: 10/12/2018. FINDINGS: Cardiac size and pulmonary vasculature are within normal limits. No focal lung infiltrate or pulmonary edema. No pneumothorax or pleural effusion. No acute bony abnormality. IMPRESSION: No acute disease. Dictated by Gurmeet Gallagher MD @ 09/15/2020 2:47:43 PM Dictated by: Gurmeet Gallagher MD @ 09/15/2020 14:47:49 (Electronically Signed)
--- NOTE | 2020-09-15 15:18 | CT ---
TECHNIQUE: CT abdomen and pelvis with intravenous contrast, 100 mL of Isovue-370. Coronal and sagittal reformats. INDICATION: Lower abdominal pain. COMPARISON: CT 08/27/2017. FINDINGS: Unchanged right basilar 9 mm pulmonary nodule, which appears calcified (series 201, image 28). Normal liver contour. Focal fatty deposition along the falciform ligament. No biliary dilatation. Gallbladder, pancreas, spleen, and adrenals are unremarkable. 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 Possible punctate 1 millimeter calculus at the left ureteropelvic junction (series 201, image 81). Mild left proximal periureteral fat stranding. Unremarkable bladder and prostate. Bowel is normal in caliber and thickness. Normal appendix. Unremarkable stomach. No free air, free fluid, or lymphadenopathy. Fat containing left inguinal hernia Normal caliber abdominal aorta. No aggressive osseous lesion. IMPRESSION: 1. 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 2. Possible 1 mm calculus at the left ureteropelvic junction with mild periureteral fat stranding. 3. Normal appendix. Dictated by Yohan Crespo MD @ 09/15/2020 3:16:45 PM Please note that all CT scans at this facility use dose modulation, iterative reconstruction, and/or weight-based dosing when appropriate to reduce radiation dose to as low as reasonably achievable. Dictated by: Yohan Crespo MD @ 09/15/2020 15:16:59 (Electronically Signed)
[2020-09-15] MEDS ORDERED: cefTRIAXone 1 GM in Premix Bag 1 BAG IV ONE (15:36)
[2020-09-15 16:39] VITALS: BP 100/51; PULSE 83
== END 2020-09-15 16:42 | disposition home or self-care (01) ==
LOC: MW.ED 12:25
DX: N20.1 Calculus of ureter (principal); J45.909 Unspecified asthma, uncomplicated; K21.9 Gastro-esophageal reflux disease without esophagitis; F17.210 Nicotine dependence, cigarettes, uncomplicated
CPT/HCPCS: 36415; 71045; 74178; 80053; 81001; 83605; 83690; 84484; 85025; 87040; 87086; 93005; 96365; 96375; 99284; J0696; J1885; J2270; J2405; J7030; Q9967